=== PATIENT | male | born 1970 | race Caucasian/White ===

== ENCOUNTER → 2020-03-22 | Outpatient (CLI) | payer OTHER ==
[2020-03-22] MEDS: IOHEXOL 300 MG/ML 75 ML VIAL. IV ONE (07:48)
--- NOTE | 2020-03-22 11:04 | RAD ---
Contrast CT scan of the chest without comparison for chest discomfort, pulmonary nodule, history of histoplasmosis. TECHNIQUE: Contiguous axial CT images are obtained through the chest following a ministration of IV contrast. Sagittal and coronal reformations are evaluated. FINDINGS: There are innumerable subcentimeter pulmonary nodules throughout both lungs, many of which are calcified. The largest is a 9 mm noncalcified nodule in the left lung base seen on series 4 image #81. Multiplicity and calcified appearance of these nodules is most consistent with benign granulomatous sequelae. Other rare etiologies including metastasis from sarcoma or primary mucinous neoplasms are much less likely especially in the absence of any known primary disease. Consider a single follow-up CT scan in 3-6 months to ensure stability if there is any clinical doubt. There are a few simple cysts in the liver which no additional follow-up is required. Remaining visualized upper abdominal organs are grossly unremarkable. No suspicious hilar, mediastinal, or axillary lymphadenopathy is seen. There are no significant osseous abnormalities. IMPRESSION: 1. Innumerable subcentimeter pulmonary nodules majority of which are calcified centrally, a pattern highly consistent with benign antecedent granulomatous disease. No single nodules are suspicious. Very rarely, mucinous neoplasms or sarcomatous neoplasm could result in calcified pulmonary metastasis with a similar appearance, however this would almost always be associated with antecedent clinical history of such a primary neoplasm. If there is any clinical doubt in this regard, a single follow-up CT scan in 3-6 months is encouraged. PQRS Compliance Statement: One or more of the following individualized dose reduction techniques were utilized for this examination: 1. Automated exposure control 2. Adjustment of the mA and/or kV according to patient size 3. Use of iterative reconstruction technique Electronically signed by: Vamsi Carlisle MD (03/22/2020 11:01 AM) [id number]
== END ==
LOC: CT 07:25
PROVIDERS: ATTEND Clinical Nurse Specialist Family Health
DX: R91.1 Solitary pulmonary nodule (principal); Z86.19 Personal history of other infectious and parasitic diseases
CPT/HCPCS: 71260; Q9967